=== PATIENT | female | born 1975 | race Caucasian/White ===

== ENCOUNTER 2021-11-26 06:30 | Day surgery (SDC) | payer OTHER ==
[~2021-11-26 06:30] MED LIST: COZAAR25 MG PO; LEXAPRO5 MG PO; SYNTHROID125 MCG PO
== END 2021-11-26 12:20 | disposition home or self-care (01) ==
LOC: CIR.AMB 06:30
PROVIDERS: ATTEND Orthopaedic Surgery Hand Surgery
DX: S56.425A Laceration of extensor muscle, fascia and tendon of right ring finger at forearm level, initial encounter (principal); S62.604A Fracture of unspecified phalanx of right ring finger, initial encounter for closed fracture; I10 Essential (primary) hypertension; E03.9 Hypothyroidism, unspecified; E16.2 Hypoglycemia, unspecified; G43.909 Migraine, unspecified, not intractable, without status migrainosus

== ENCOUNTER 2022-05-21 08:20 | Day surgery (SDC) | payer OTHER ==
[~2022-05-21] VITALS: Ht 162.6 cm; Wt 73.5 kg
[~2022-05-21 08:20] MED LIST changes: +LEXAP PO; +SYNTHROID100 MCG
== END 2022-05-21 19:50 | disposition home or self-care (01) ==
LOC: CIR.AMB 08:20
PROVIDERS: ATTEND Specialist
DX: N85.00 Endometrial hyperplasia, unspecified (principal); I10 Essential (primary) hypertension; J45.909 Unspecified asthma, uncomplicated; E03.9 Hypothyroidism, unspecified; E78.5 Hyperlipidemia, unspecified